=== PATIENT | female | born 1950 | race African-American/Black ===

== ENCOUNTER → 2016-06-24 | Outpatient (CLI) | payer MEDICARE, MEDICAID | LOC: OD 13:07 | PROVIDERS: ATTEND Family Medicine | DX: E11.9 Type 2 diabetes mellitus without complications (principal) | CPT/HCPCS: 36415; 82043; 83036 ==

== ENCOUNTER → 2017-01-18 | Outpatient (CLI) | payer MEDICARE, MEDICAID ==
[2017-01-18 11:19] LABS: ANION GAP 16 (5-19); BLOOD UREA NITROGEN 14 mg/dL (7-20); CARBON DIOXIDE 24 mmol/L (22-30); CHLORIDE 108 mmol/L (98-107); CHOLESTEROL 149.24 mg/dL (0-200); CREATININE RESULT 0.84 mg/dL (0.52-1.25); Direct HDL 58 mg/dL (>40); GLUCOSE 109 mg/dL (75-110); POTASSIUM 3.5 mmol/L (3.6-5.0); SODIUM 148.4 mmol/L (137-145); TRIGLYCERIDES 53 mg/dL (<150)
[2017-01-18 11:33] LABS: DIRECT LDL 72 mg/dL (<100)
== END ==
LOC: OD 09:30
PROVIDERS: ATTEND Family Medicine
DX: E11.649 Type 2 diabetes mellitus with hypoglycemia without coma (principal); I10 Essential (primary) hypertension; Z79.899 Other long term (current) drug therapy
CPT/HCPCS: 36415; 80048; 80061; 83036; 84443

== ENCOUNTER 2017-06-15 09:13 | Day surgery (SDC) | payer MEDICARE, MEDICAID ==
[~2017-06-15 09:13] MED LIST: BUPIVACAINE HCL 0.75% INJ/PF (7.5 MG/1 ML) 10 ML SDV OD PRN; KETOROLAC TROMETHAMINE 0.45% 4 DROP/0.4 ML DROPERETTE OD PRN; LIDOCAINE 4% INJ/PF (40 MG/ML) 5 ML AMPUL OD PRN
[2017-06-15] MEDS ORDERED: CHONDR SU A NA/HYALUR INTRAOC KIT (SURGICARE) ONE (09:20)
[2017-06-15] MEDS ORDERED: EPINEPHRINE INJ/PF 1 MG/1 ML AMPULE ONE (09:20)
[2017-06-15] MEDS ORDERED: LIDOCAINE 1% INJ-PF (10 MG/ML) 30 ML SDV ONE (09:20)
[2017-06-15] MEDS: TETRACAINE HCL 0.5% OPH SOLN 0.6 ML DROPERETTE OD PRN ×2 (09:43→10:07)
[2017-06-15] MEDS: TROPICAMIDE 1% OPH SOLN 3 ML OD PRN ×3 (09:43→10:01)
[2017-06-15] MEDS: CYCLOPENTOLATE 0.2%/PHENYLEPHRINE 1% OPH SOLN 2 ML OD PRN ×3 (09:43→10:01)
[2017-06-15] MEDS: BESIFLOXACIN HCL 0.6% OPH SUSP 5 ML BOTTLE OD PRN ×3 (09:43→10:47)
[2017-06-15] MEDS ORDERED: FENTANYL CITRATE INJ/PF 100 MCG/2 ML AMPUL ONE (10:05)
[2017-06-15] MEDS ORDERED: MIDAZOLAM 2 MG/2 ML INJ ONE (10:05)
--- NOTE | 2017-06-15 11:44 | [facility] OPERATIVE REPORT E ---
[facility] Operative Report NAME: SIMEON VAZQUEZ AGE: 67Y DATE OF SURGERY: 06/15/2017 ROOM: PREOPERATIVE DIAGNOSIS: CATARACT, RIGHT EYE. POSTOPERATIVE DIAGNOSIS: CATARACT, RIGHT EYE. OPERATION: Phacoemulsification with posterior chamber intraocular lens, right eye. SURGEON: SOILA MCDONNELL M.D. ANESTHESIA: Topical with MAC. INDICATIONS FOR SURGERY Difficulty reading small print, best corrected visual acuity 20/60. PROCEDURE: The patient was brought to the Operating Room and placed on the operative table. Following tetracaine drops, topical anesthesia was administered. This consisted of instrument wipe pledgets soaked in a solution of 4% Xylocaine mixed with 0.75% Marcaine in a 1:2 ratio. A 2 x 1 cm pledget was placed in the superior fornix. A 1 x 1 cm pledget was placed in the inferior fornix. The eye was patched shut for 5 minutes. The patch was removed. The eye was sterilely prepped and draped in the usual manner. Lid speculum was placed in the eye. The pledgets were removed. 4-0 black silk sutures were placed around the superior and the inferior rectus muscles to be used as traction. A conjunctival peritomy was made at the 10 o'clock position. Hemostasis was obtained with bipolar cautery. A posterior limbal groove was created using a crescent knife and dissected anteriorly towards the cornea. A sharp point blade was used to create a paracentesis site at the 2 o'clock position. A 2.4 mm keratome was used to enter the anterior chamber through the groove. Viscoelastic was injected into the anterior chamber. An anterior capsulotomy was performed using Utrata forceps in a capsulorrhexis fashion. Hydrodissection and hydrodelineation were performed. Phacoemulsification was performed in [id number]-gqv-[id number] technique. A total of 4.90 CDE seconds phaco time was used. Following this, the I/A unit was used to remove residual cortex. Viscoelastic was injected into the capsular bag. Intraocular lens model SN60WF, 16.0 diopters, serial number [id number] was placed in the capsular bag. The I/A unit was used to remove residual viscoelastic. The wound was seen to be watertight under high and low pressure, and no sutures were placed. The intraocular lens was well centered. The pressure was adjusted in the eye to normal pressure. The 4-0 black silk sutures and lid speculum were removed. The eye was shielded after Besivance drops were placed. The patient tolerated the procedure well and was sent to the Recovery Room in good condition. DICTATING PHYSICIAN: SOILA MCDONNELL M.D. [id number] PHY#: [id number] ID: [id number] JOB#: [id number] ACCT: [id number] cc:SOILA MCDONNELL M.D. >
--- NOTE | 2017-06-15 17:29 | [facility] DISCHARGE SUMMARY E ---
[facility] Discharge Summary NAME: SIMEON VAZQUEZ AGE: 67Y ADMITTED: 06/15/2017 DISCHARGED: 06/15/2017 HOSPITAL COURSE: The patient is a 67-year-old lady who underwent uneventful cataract extraction with intraocular lens implant, right eye, on 06/15/2017. She will be discharged to home. She is instructed to resume preoperative medications, take Tylenol as needed for discomfort. She is to keep her eye shielded, use Besivance, Durezol, and Ilevro at 3:00 p.m. and 8:00 p.m., and to follow up in my office in 1 day. DICTATING PHYSICIAN: SOILA MCDONNELL M.D. [id number] PHY#: [id number] ID: [id number] JOB#: [id number] ACCT: [id number] cc:SOILA MCDONNELL M.D. >
== END 2017-06-15 11:41 | disposition home or self-care (01) ==
LOC: SC 09:13
PROVIDERS: ATTEND Ophthalmology
DX: H25.813 Combined forms of age-related cataract, bilateral (principal); H40.013 Open angle with borderline findings, low risk, bilateral; E11.9 Type 2 diabetes mellitus without complications; I10 Essential (primary) hypertension; Z79.899 Other long term (current) drug therapy; Z88.6 Allergy status to analgesic agent
CPT/HCPCS: 66984; 82962; V2632; J2250; J3490 ×4; A9270; J0171; J3010; 142

== ENCOUNTER 2017-07-06 10:57 | Day surgery (SDC) | payer MEDICARE, MEDICAID ==
[~2017-07-06 10:57] MED LIST changes: -BUPIVACAINE HCL 0.75% INJ/PF (7.5 MG/1 ML) 10 ML SDV OD PRN; +BUPIVACAINE HCL 0.75% INJ/PF (7.5 MG/1 ML) 10 ML SDV OS PRN; +CHONDR SU A NA/HYALUR INTRAOC KIT (SURGICARE) ONE; +EPINEPHRINE INJ/PF 1 MG/1 ML AMPULE ONE; -KETOROLAC TROMETHAMINE 0.45% 4 DROP/0.4 ML DROPERETTE OD PRN; +KETOROLAC TROMETHAMINE 0.45% 4 DROP/0.4 ML DROPERETTE OS PRN; +LIDOCAINE 1% INJ-PF (10 MG/ML) 30 ML SDV ONE; -LIDOCAINE 4% INJ/PF (40 MG/ML) 5 ML AMPUL OD PRN; +LIDOCAINE 4% INJ/PF (40 MG/ML) 5 ML AMPUL OS PRN
[2017-07-06] MEDS: TROPICAMIDE 1% OPH SOLN 3 ML OS PRN ×3 (11:12→11:32)
[2017-07-06] MEDS: CYCLOPENTOLATE 0.2%/PHENYLEPHRINE 1% OPH SOLN 2 ML OS PRN ×3 (11:12→11:32)
[2017-07-06] MEDS: BESIFLOXACIN HCL 0.6% OPH SUSP 5 ML BOTTLE OS PRN ×3 (11:13→12:12)
[2017-07-06] MEDS: TETRACAINE HCL 0.5% OPH SOLN 0.6 ML DROPERETTE OS PRN ×2 (11:14→11:33)
[2017-07-06] MEDS ORDERED: MIDAZOLAM 2 MG/2 ML INJ ONE (11:22)
[2017-07-06] MEDS ORDERED: FENTANYL CITRATE INJ/PF 100 MCG/2 ML AMPUL ONE (11:22)
[2017-07-06] MEDS ORDERED: ONDANSETRON HCL INJ/PF 4 MG/2 ML SDV ONE (11:23)
--- NOTE | 2017-07-06 12:24 | [facility] OPERATIVE REPORT E ---
[facility] NAME: SIMEON VAZQUEZ AGE: 67Y DATE OF SURGERY: 07/06/2017 ROOM: [facility] Operative Report PREOPERATIVE DIAGNOSIS: CATARACT, LEFT EYE. POSTOPERATIVE DIAGNOSIS: CATARACT, LEFT EYE. PROCEDURE PERFORMED: PHACOEMULSIFICATION WITH POSTERIOR CHAMBER INTRAOCULAR LENS, LEFT EYE. SURGEON: SOILA MCDONNELL MD ANESTHESIA: TOPICAL WITH MAC. INDICATIONS FOR SURGERY: Difficulty seeing TV. Best corrected visual acuity 20/100. PROCEDURE: The patient was brought to the Operating Room and placed on the operative table. Following tetracaine drops, topical anesthesia was administered. This consisted of instrument wipe pledgets soaked in a solution of 4% Xylocaine mixed with 0.75% Marcaine in a 1:2 ratio. A 2 x 1 cm pledget was placed in the superior fornix. A 1 x 1 cm pledget was placed in the inferior fornix. The eye was patched shut for 5 minutes. The patch was removed. The eye was sterilely prepped and draped in the usual manner. Lid speculum was placed in the eye. The pledgets were removed. 4-0 black silk sutures were placed around the superior and the inferior rectus muscles to be used as traction. A conjunctival peritomy was made at the 10 o'clock position. Hemostasis was obtained with bipolar cautery. A posterior limbal groove was created using a crescent knife and dissected anteriorly towards the cornea. A sharp point blade was used to create a paracentesis site at the 2 o'clock position. A 2.4 mm keratome was used to enter the anterior chamber through the groove. Viscoelastic was injected into the anterior chamber. An anterior capsulotomy was performed using Utrata forceps in a capsulorrhexis fashion. Hydrodissection and hydrodelineation were performed. Phacoemulsification was performed in elgqxa-tco-aicyjpy technique. A total of 4.53 CDE phaco time was used. Following this, the I/A unit was used to remove residual cortex. Viscoelastic was injected into the capsular bag. Intraocular lens model SN60WF, 17.0 diopters, serial number [id number] was placed in the capsular bag. The I/A unit was used to remove residual viscoelastic. The wound was seen to be watertight under high and low pressure, and no sutures were placed. The intraocular lens was well centered. The pressure was adjusted in the eye to normal pressure. The 4-0 black silk sutures and lid speculum were removed. The eye was shielded after Besivance drops were placed. The patient tolerated the procedure well and was sent to the Recovery Room in good condition. DICTATING PHYSICIAN: SOILA MCDONNELL M.D. DICTATING PHYSICIAN: SOILA MCDONNELL M.D. [id number] PHY#: [id number] ID: [id number] JOB#: [id number] ACCT: [id number] cc:SOILA MCDONNELL M.D. >
--- NOTE | 2017-07-06 12:29 | [facility] DISCHARGE SUMMARY E ---
[facility] Discharge Summary NAME: SIMEON VAZQUEZ AGE: 67Y ADMITTED: 07/06/2017 DISCHARGED: 07/06/2017 FINAL DIAGNOSIS: CATARACT, LEFT EYE. HOSPITAL COURSE: The patient is a 67-year-old lady who underwent uneventful cataract extraction with intraocular lens implant, left eye, on 07/06/2017. She will be discharged to home. She was instructed to resume preoperative medication, take Tylenol as needed for discomfort. She is to keep her eye shielded. Use Besivance, Durezol, and Ilevro at 3 p.m. and 8 p.m. To follow up in my office in 1 day. DICTATING PHYSICIAN: SOILA MCDONNELL M.D. [id number] PHY#: [id number] ID: [id number] JOB#: [id number] ACCT: [id number] cc:SOILA MCDONNELL M.D. >
== END 2017-07-06 13:01 | disposition home or self-care (01) ==
LOC: SC 10:57
PROVIDERS: ATTEND Ophthalmology
PROC: 08RK3JZ Replacement of Left Lens with Synthetic Substitute, Percutaneous Approach (ICD-10-PCS; principal; 2017-07-06 12:00)
DX: H25.812 Combined forms of age-related cataract, left eye (principal); Z96.1 Presence of intraocular lens; K21.9 Gastro-esophageal reflux disease without esophagitis; Z79.899 Other long term (current) drug therapy
CPT/HCPCS: 66984; 82962; V2632; J2250; J3490 ×4; A9270; J0171; J2405; 142; J3010

== ENCOUNTER 2017-11-20 10:31 | Emergency (ER) | payer MEDICARE, MEDICAID ==
[2017-11-20] MEDS ORDERED: LIDOCAINE 5% (700 MG) TRANSDERMAL ADH..PATCH TP ONE (10:54)
[2017-11-20 11:40] LABS: ABSOLUTE BASOPHILS # (AUTO) 0.1 10^3/uL (0.0-0.2); ABSOLUTE EOSINOPHILS # (AUTO) 0.5 10^3/uL (0.0-0.6); ABSOLUTE LYMPHOCYTES (AUTO) 3.4 10^3/uL (0.5-4.7); ABSOLUTE MONOCYTES (AUTO) 0.4 10^3/uL (0.1-1.4); ABSOLUTE NEUT (AUTO) 3.1 10^3/uL (1.7-8.2); BASOPHILS % (AUTO) 0.8 % (0-2); EOSINOPHILS % (AUTO) 6.3 % (0-6); HEMATOCRIT 37.1 % (36.0-47.0); HEMOGLOBIN 12.1 g/dL (12.0-15.5); MEAN CORPUSCULAR HEMOGLOBIN 28.3 pg (27.0-33.4); MEAN CORPUSCULAR HGB CONC 32.5 g/dL (32.0-36.0); MEAN CORPUSCULAR VOLUME 87 fl (80-97); MONOCYTES % (AUTO) 5.9 % (3-13); PLATELET COUNT 269 10^3/uL (150-450); RED BLOOD COUNT 4.27 10^6/uL (3.72-5.28); RED CELL DISTRIBUTION WIDTH 14.6 % (11.5-14.0); TOTAL CELLS COUNTED % (AUTO) 100 %; WHITE BLOOD COUNT 7.5 10^3/uL (4.0-10.5)
--- NOTE | 2017-11-20 11:53 | ER Document Report ---
ED General - General Chief Complaint: Abdominal Pain Stated Complaint: L SIDE PAIN Time Seen by Provider: 11/20/17 10:48 TRAVEL OUTSIDE OF THE [place] IN LAST 30 DAYS: No - HPI Patient complains to provider of: abdominal pain. Notes: Patient coming in with a history of dementia for left right abdominal pain back pain and also suprapubic pain also states nausea and diarrhea. No changes in stool color no signs of blood. No fevers or chills. Patient otherwise looks to be comfortable upon my evaluation. - Related Data Allergies/Adverse Reactions: acetaminophen [From Respa C&C] Allergy (Verified 11/20/17 10:55) aspirin [Aspirin] Allergy (Verified 11/20/17 10:55) ciprofloxacin [From Cipro] Allergy (Verified 11/20/17 10:55) ciprofloxacin HCl [From Cipro] Allergy (Verified 11/20/17 10:55) Morenci And Derivatives Allergy (Verified 11/20/17 10:55) dextromethorphan HBr [From Respa C&C] Allergy (Verified 11/20/17 10:55) dicyclomine HCl [From Bentyl] Allergy (Verified 11/20/17 10:55) diphenhydramine [From Respa C&C] Allergy (Verified 11/20/17 10:55) hyoscyamine sulfate [From Levsin] Allergy (Verified 11/20/17 10:55) phenylephrine HCl [From Respa C&C] Allergy (Verified 11/20/17 10:55) Shellfish * [Shellfish] Allergy (Verified 11/20/17 10:55) DAIRY Allergy (Uncoded 11/20/17 10:55) Past Medical History - Social History Smoking Status: Never Smoker Chew tobacco use (# tins/day): Yes Family History: Reviewed & Not Pertinent Patient has suicidal ideation: No Patient has homicidal ideation: No - Past Medical History Cardiac Medical History: Reports: Hx Hypertension Denies: Hx Coronary Artery Disease, Hx Heart Attack Pulmonary Medical History: Reports: Hx Bronchitis Denies: Hx Asthma, Hx COPD, Hx Pneumonia Neurological Medical History: Reports: Hx Seizures. Denies: Hx Cerebrovascular Accident Endocrine Medical History: Reports: Hx Diabetes Mellitus Type 2 Renal/ Medical History: Denies: Hx Peritoneal Dialysis GI Medical History: Reports: Hx Gastroesophageal Reflux Disease, Hx Irritable Bowel. Denies: Hx Hepatitis, Hx Hiatal Hernia, Hx Ulcer Musculoskeletal Medical History: Reports Hx Arthritis - Shoulders Psychiatric Medical History: Reports: Hx Anxiety, Hx Dementia - Confirmed by her daughter, Hx Depression Infectious Medical History: Denies: Hx Hepatitis Past Surgical History: Denies: Hx Hysterectomy, Hx Mastectomy, Hx Open Heart Surgery, Hx Pacemaker - Immunizations Hx Diphtheria, Pertussis, Tetanus Vaccination: No Review of Systems - Review of Systems Constitutional: No symptoms reported EENT: No symptoms reported Cardiovascular: No symptoms reported Respiratory: No symptoms reported Gastrointestinal: Abdominal pain Genitourinary: No symptoms reported Female Genitourinary: No symptoms reported Musculoskeletal: No symptoms reported Skin: No symptoms reported Hematologic/Lymphatic: No symptoms reported Neurological/Psychological: No symptoms reported -: Yes All other systems reviewed and negative Physical Exam - Vital signs Vitals: Temp Pulse Resp BP Pulse Ox 98.0 F 58 L 16 132/59 H 100 11/20/17 10:45 11/20/17 10:45 11/20/17 10:45 11/20/17 10:45 11/20/17 10:45 Interpretation: Normal - General General appearance: Appears well, Alert - HEENT Head: Normocephalic, Atraumatic Eyes: Normal Pupils: PERRL - Respiratory Respiratory status: No respiratory distress Chest status: Nontender Breath sounds: Normal Chest palpation: Normal - Cardiovascular Rhythm: Regular Heart sounds: Normal auscultation Murmur: No - Abdominal Inspection: Normal Distension: No distension Bowel sounds: Normal Tenderness: Tender - Diffuse tenderness no peritoneal signs no guarding or rebound Organomegaly: No organomegaly - Back Back: Normal, Nontender - Extremities General upper extremity: Normal inspection, Nontender, Normal color, Normal ROM , Normal temperature General lower extremity: Normal inspection, Nontender, Normal color, Normal ROM , Normal temperature, Normal weight bearing. No: Aron's sign - Neurological Neuro grossly intact: Yes Parker Coma Scale Eye Opening: Spontaneous [place] Coma Scale Verbal: Oriented [place] Coma Scale Motor: Obeys Commands [place] Coma Scale Total: 15 Speech: Normal Motor strength normal: LUE, RUE, LLE, RLE Sensory: Normal - Psychological Associated symptoms: Normal affect, Normal mood - Skin Skin Temperature: Warm Skin Moisture: Dry Skin Color: Normal Course - Re-evaluation Re-evalutation: 11/20/17 20:25 Patient's abdomen has diffuse tenderness. CAT scan shows diverticulosis possible early diverticulitis and will concern about possible early diverticulitis patient does have some bacteria in her urine as well could explain some of the back pain and lower abdominal pain along the superior pain. Urine culture will be sent. Because the patient's allergies will start the patient on Augmentin for diverticulitis and UTI. Patient is to follow-up primary care physician. Able tolerate p.o. here in ER good candidate for outpatient management - Vital Signs Vital signs: Temp Pulse Resp BP Pulse Ox 97.7 F 62 20 130/71 H 98 11/20/17 12:48 11/20/17 12:48 11/20/17 12:48 11/20/17 12:48 11/20/17 12:48 - Laboratory Result Diagrams: 11/20/17 11:16 11/20/17 11:16 Laboratory results interpreted by me: 11/20/17 11/20/17 11/20/17 11:16 11:16 12:00 RDW 14.6 H Seg Neutrophils % 41.0 L Lymphocytes % 46.0 H Eosinophils % 6.3 H Sodium 145.9 H Potassium 3.5 L AST 38 H Urine Urobilinogen 2.0 H Ur Leukocyte Esterase MODERATE H Discharge - Discharge Clinical Impression: Diverticulitis UTI (urinary tract infection) Qualifiers: Urinary tract infection type: acute cystitis Hematuria presence: without hematuria Qualified Code(s): N30.00 - Acute cystitis without hematuria Condition: Good Disposition: HOME, SELF-CARE Instructions: Diverticulitis ([facility]), Urinary Tract Infection ([facility]) Additional Instructions: CAT scan today is concerning for possible development of diverticulitis or inflammation the pouch is on your colon. Would recommend follow-up with your primary care physician. Was also bacteria in your urinalysis suggestive of early urinary tract infection. We will prescribe the Augmentin which should treat both of these conditions. Would recommend taking Zofran provided for any nausea vomiting Tylenol or Motrin for pain control Return to ER symptoms worsen or if you develop a fever. Follow-up with your primary care physician in the next 3-5 days Prescriptions: Amox Tr/Potassium Clavulanate [Augmentin 875-125 Tablet] 1 tab PO BID 10 Days tablet Ondansetron [Zofran Odt] 4 mg PO Q6 PRN #30 tab.rapdis PRN Reason: For Nausea/Vomiting Referrals: WINDY,LEON, MD [Primary Care Provider] - Follow up as needed
[2017-11-20 11:57] LABS: ALANINE AMINOTRANSFERASE 38 U/L (9-52); ALBUMIN 4.1 g/dL (3.5-5.0); ALKALINE PHOSPHATASE 62 U/L (38-126); ANION GAP 12 (5-19); ASPARTATE AMINO TRANSFERASE 38 U/L (14-36); BILIRUBIN,DIRECT 0.2 mg/dL (0.0-0.4); BILIRUBIN,TOTAL 0.3 mg/dL (0.2-1.3); BLOOD UREA NITROGEN 12 mg/dL (7-20); CALCIUM 9.4 mg/dL (8.4-10.2); CARBON DIOXIDE 28 mmol/L (22-30); CHLORIDE 106 mmol/L (98-107); GLUCOSE 85 mg/dL (75-110); LIPASE 221.3 U/L (23-300); POTASSIUM 3.5 mmol/L (3.6-5.0); SODIUM 145.9 mmol/L (137-145); TOTAL PROTEIN 7.9 g/dL (6.3-8.2)
--- NOTE | 2017-11-20 12:01 | RADIOLOGY REPORT (SQ) ---
EXAM DESCRIPTION: CT LTD RENAL STONE PROTOCOL ON COMPLETED DATE/TIME: 11/20/2017 11:30 am REASON FOR STUDY: right flank pain COMPARISON: None. TECHNIQUE: CT scan of the abdomen and pelvis performed without intravenous or oral contrast. Images reviewed with lung, soft tissue, and bone windows. Reconstructed coronal and sagittal MPR images revi ewed. All images stored on PACS. All CT scanners at this facility use dose modulation, iterative reconstruction, and/or weight based d osing when appropriate to reduce radiation dose to as low as reasonably achievable (ALARA). [facility]: Dose Right [facility]: CareDose [facility]: Dose Right [facility]: Teradose 4D [facility]: [employer] RADIATION DOSE: CT Rad equipment meets quality standard of care and radiation dose reduction techniq ues were employed. CTDIvol: 5.3 mGy. DLP: 278 mGy-cm.mGy. LIMITATIONS: None. FINDINGS: LOWER CHEST: No significant findings. No nodules or infiltrates. NON-CONTRASTED LIVER, SPLEEN, ADRENALS: Evaluation limited by lack of IV contrast. No identified sign ificant masses. PANCREAS: No masses. No peripancreatic inflammatory changes. GALLBLADDER: No identified stones by CT criteria. No inflammatory changes to suggest cholecystitis. RIGHT KIDNEY AND URETER: No solid masses. No significant calcification. No hydronephrosis or hydroure ter. LEFT KIDNEY AND URETER: No solid masses. No significant calcification. No hydronephrosis or hydrouret er. AORTA AND RETROPERITONEUM: No aneurysm. No retroperitoneal masses or adenopathy. BOWEL AND PERITONEAL CAVITY: Diverticulosis in the sigmoid colon. No developing diverticular abscess or free air. APPENDIX: Normal. PELVIS, BLADDER, AND ABDOMINAL WALL:Calcified phleboliths in the pelvis. Bladder unremarkable. No m ass or free fluid. No abdominal wall mass or hernia evident. BONES: No significant findings. OTHER: No other significant finding. IMPRESSION: 1. Sigmoid diverticulosis. Doubt diverticulitis but correlate with symptoms. 2. No donell dence of urinary obstruction or stones. TECHNICAL DOCUMENTATION: JOB ID: [id number] Quality ID # [id number]: Final reports with documentation of one or more dose reduction techniques (e.g., Au tomated exposure control, adjustment of the mA and/or kV according to patient size, use of iterative reconstruction technique) 2010 [employer]- All Rights Reserved Reading location - IP/workstation name: [email or web address]
[2017-11-20 12:28] LABS: APPEARANCE,URINE CLEAR; BILIRUBIN,URINE NEGATIVE (NEGATIVE); COLOR,URINE AMBER; GLUCOSE, URINE NEGATIVE (NEGATIVE); KETONES,URINE NEGATIVE (NEGATIVE); LEUKOCYTE ESTERASE,URINE MODERATE (NEGATIVE); NITRITE,URINE NEGATIVE (NEGATIVE); PROTEIN,URINE NEGATIVE (NEGATIVE); URINE SPECIFIC GRAVITY 1.016
[2017-11-20 12:49] VITALS: BP 130/71
[2017-11-20] MEDS ORDERED: AMOXICILLIN TR/POT CLAVULANATE 500-125 MG TAB PO ONE (12:59)
== END 2017-11-20 13:10 | disposition home or self-care (01) ==
LOC: ER 10:31
DX: K57.92 Diverticulitis of intestine, part unspecified, without perforation or abscess without bleeding (principal); N30.00 Acute cystitis without hematuria; R10.30 Lower abdominal pain, unspecified; R11.0 Nausea; R19.7 Diarrhea, unspecified; I10 Essential (primary) hypertension; E11.9 Type 2 diabetes mellitus without complications
CPT/HCPCS: 99284; 36415; 87086; 83690; 85025; 80053; 81001; 76380; A9270

== ENCOUNTER → 2018-02-18 | Outpatient (CLI) | payer MEDICARE, MEDICAID ==
[2018-02-18 10:48] LABS: ANION GAP 9 (5-19); BLOOD UREA NITROGEN 14 mg/dL (7-20); CALCIUM 9.3 mg/dL (8.4-10.2); CARBON DIOXIDE 32 mmol/L (22-30); CHLORIDE 106 mmol/L (98-107); CHOLESTEROL 152.59 mg/dL (0-200); GLUCOSE 92 mg/dL (75-110); POTASSIUM 3.5 mmol/L (3.6-5.0); TRIGLYCERIDES 80 mg/dL (<150)
[2018-02-18 10:59] LABS: DIRECT LDL 74 mg/dL (<100)
== END ==
LOC: OD 09:16
PROVIDERS: ATTEND Family Medicine
DX: E11.649 Type 2 diabetes mellitus with hypoglycemia without coma (principal); I10 Essential (primary) hypertension; Z79.899 Other long term (current) drug therapy
CPT/HCPCS: 36415; 80048; 80061; 83036; 84443

== ENCOUNTER → 2019-02-02 | Outpatient (CLI) | payer MEDICAID, MEDICARE ==
[2019-02-02 13:17] LABS: ANION GAP 8 (5-19); BLOOD UREA NITROGEN 14 mg/dL (7-20); CALCIUM 9.2 mg/dL (8.4-10.2); CARBON DIOXIDE 28 mmol/L (22-30); CHLORIDE 108 mmol/L (98-107); CHOLESTEROL 174.86 mg/dL (0-200); GLUCOSE 100 mg/dL (75-110); POTASSIUM 4.3 mmol/L (3.6-5.0); TRIGLYCERIDES 48 mg/dL (<150)
[2019-02-02 13:28] LABS: DIRECT LDL 98 mg/dL (<100)
== END ==
LOC: OD 11:26
PROVIDERS: ATTEND Family Medicine
DX: E11.43 Type 2 diabetes mellitus with diabetic autonomic (poly)neuropathy (principal); E78.5 Hyperlipidemia, unspecified; I10 Essential (primary) hypertension
CPT/HCPCS: 36415; 80048; 80061; 83036; 84443